=== PATIENT | female | born 1960 | race Caucasian/White ===

== ENCOUNTER 2020-02-05 13:29 | Emergency (ER) | payer BC ==
--- NOTE | 2020-02-05 14:23 | RAD ---
PORTABLE CHEST: 02/05/20 HISTORY: Chest pain. The lungs appear clear. No infiltrate or vascular congestion. Heart size is normal. IMPRESSION: No acute process. POS: AGW
[2020-02-05 14:26] LABS: #Basophils 0.1 thou/uL (0.0-0.2); #Eosinphils 0.1 thou/uL (0.0-0.7); #Lymphocytes 2.3 thou/uL (1.20-3.40); #Monocytes 0.6 thou/uL (0.11-0.59); #Neutrophils 7.4 thou/uL (1.40-6.50); %Basophils 0.7 % (0.0-1.0); %Eosinophils 0.9 % (0.0-10.0); %Lymphocytes 22.1 % (21.0-51.0); %Monocytes 5.7 % (0.0-10.0); %Neutrophils 70.7 % (42.0-75.0); Hemoglobin 13.5 g/dL (12.0-16.0); Mean Corpuscular HGB CONC 33.6 g/dL (32.0-36.0); Mean Corpuscular Hemoglobin 29.8 pg (27.0-31.0); Mean Corpuscular Volume 88.7 fL (78.0-98.0); Mean Platelet Volume 7.1 fL (7.4-10.4); Platelet Count 350 thou/uL (130-400); RBC Distribution Width 13.9 % (11.5-14.5); Red Blood Cell (RBC) Count 4.52 mill/uL (4.20-5.40); White Blood Cell (WBC) Count 10.5 thou/uL (4.8-10.8)
[2020-02-05 14:38] LABS: ALT (SGPT) 15 U/L (8-55); AST (SGOT) 14 U/L (5-34); Albumin 4.6 g/dL (3.4-4.8); Alkaline Phosphatase 100 U/L (40-110); Anion Gap 14 mmol/L (10-20); BUN (Urea Nitrogen) 12 mg/dL (9.8-20.1); Bilirubin, Total 0.3 mg/dL (0.2-1.2); CK (CPK) 63 U/L (29-168); Calc. Creatinine Clearance 0 mL/min (70-130); Calcium 9.7 mg/dL (7.8-10.44); Carbon Dioxide 25 mmol/L (23-31); Chloride 105 mmol/L (98-107); Estimated GFR-MDRD 70; Globulin 3.1 g/dL (2.4-3.5); Glucose 91 mg/dL (80-115); Potassium 4.4 mmol/L (3.5-5.1); Protein, Total 7.7 g/dL (6.0-8.3); Sodium 140 mmol/L (136-145)
[2020-02-05 15:05] LABS: Bacteria/HPF None Seen HPF (None Seen); Bilirubin Negative (Negative); Blood, Urine Trace (Negative); Clarity Clear (Clear); Glucose, Urine (Dipstick) Normal (Negative); Leukocyte Negative Leu/uL (Negative); Nitrite Negative (Negative); Protein, Urine (Dipstick) Negative (Neg-Trace); RBC/HPF 0-3 HPF (0-3); Squamous Epithelial 0-3 HPF (0-3); Urobilinogen Normal mg/dL (Less than 2); WBC/HPF 0-3 HPF (0-3)
--- NOTE | 2020-02-05 15:13 | CT ---
CT HEAD WITHOUT CONTRAST: 02/05/20 INDICATIONS: Syncope. No comparison. Moderate cortical atrophy involving the frontal lobes. This is more prominent than expected for age. There is a focal lucency in the right thalamus suggesting a remote insult. Old lacunar infarct would be suspected. No acute cortical infarct. No mass or hemorrhage. No edema. No significant white matter abnormality. Sinuses and mastoids are clear. IMPRESSION: 1. Moderate cortical atrophy involving the frontal lobes. 2. 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 3. No evidence of acute process identified. POS: AGW
--- NOTE | 2020-02-06 10:34 | EKG ---
Test Reason : Blood Pressure : / mmHG Vent. Rate : 083 BPM Atrial Rate : 083 BPM P-R Int : 162 ms QRS Dur : 094 ms QT Int : 384 ms P-R-T Axes : 051 002 057 degrees QTc Int : 451 ms Sinus rhythm with Premature atrial complexes Otherwise normal ECG Confirmed by IRMA BREWER DO [id number]), department editor ABIDA GARCIA ([id number] on 02/06/2020 10:34:39 AM Referred By: Confirmed By:IRMA BREWER DO
== END 2020-02-05 15:09 | disposition home or self-care (01) ==
LOC: ERS 13:29
DX: R55 Syncope and collapse (principal); I10 Essential (primary) hypertension; Z86.73 Personal history of transient ischemic attack (TIA), and cerebral infarction without residual deficits
CPT/HCPCS: 70450; 71045; 80053; 81003; 81015; 82550; 84484; 85025; 93005

== ENCOUNTER 2021-11-10 19:24 | Emergency (ER) | payer BC, SELFPAY ==
[2021-11-10] MEDS ORDERED: Proparacaine 0.5% Opth 15 ML BOT ONE (20:02)
[2021-11-10] MEDS ORDERED: Fluorescein Opthalmic Strip ONE (20:04)
== END 2021-11-10 21:00 | disposition home or self-care (01) ==
LOC: ERS 19:24
DX: S05.01XA Injury of conjunctiva and corneal abrasion without foreign body, right eye, initial encounter (principal); I10 Essential (primary) hypertension; Z86.73 Personal history of transient ischemic attack (TIA), and cerebral infarction without residual deficits; F17.210 Nicotine dependence, cigarettes, uncomplicated; W22.8XXA Striking against or struck by other objects, initial encounter
CPT/HCPCS: 99283

== ENCOUNTER 2022-09-03 09:39 | Outpatient (CLI) | payer BC | END 2022-09-03 09:40 | disposition home or self-care (01) | LOC: BICMAMMO 09:39 | PROVIDERS: ATTEND Internal Medicine | DX: Z12.31 Encounter for screening mammogram for malignant neoplasm of breast (principal); R92.1 Mammographic calcification found on diagnostic imaging of breast | CPT/HCPCS: 77063; 77067 ==

== ENCOUNTER 2023-04-21 11:02 | Outpatient (CLI) | payer BC ==
[~2023-04-21 11:02] MED LIST: Iopamidol 370 76% 100 ML VIAL ONE
== END 2023-04-21 11:03 | disposition home or self-care (01) ==
LOC: BICCT 11:02
PROVIDERS: ATTEND Neurological Surgery
DX: I67.1 Cerebral aneurysm, nonruptured (principal); J32.0 Chronic maxillary sinusitis; Z95.828 Presence of other vascular implants and grafts
CPT/HCPCS: 70496; 82565; Q9967

== ENCOUNTER 2023-05-20 06:03 | Day surgery (SDC) | payer BC ==
[2023-05-08 09:38] VITALS: BMI 28.1
[2023-05-20] MEDS ORDERED: Lidocaine 1% (PF) 30 ML VIAL ONE (06:11)
[2023-05-20] MEDS ORDERED: Heparin 10,000 UNITS/ 10 ML VIAL ONE (06:18)
[2023-05-20] MEDS ORDERED: fentaNYL 50 mcg/mL 1 mL Vial ONE (06:18)
[2023-05-20] MEDS ORDERED: Midazolam HCl 2 mg/2 ml Vial ONE (06:18)
[2023-05-20] MEDS ORDERED: hydrALAZINE 20 MG/ML VIAL ONE (07:51)
[2023-05-20] MEDS ORDERED: diphenhydrAMINE 50 MG/ML VIAL IVP SCH (10:30)
[2023-05-20] MEDS ORDERED: Acetaminophen 500 MG TAB PO SCH (10:30)
[2023-05-20] MEDS ORDERED: diphenhydrAMINE 50 MG/ML VIAL ONE (10:49)
[2023-05-20] MEDS ORDERED: Acetaminophen 500 MG TAB ONE (10:58)
[2023-05-20] MEDS ORDERED: Iopamidol 370 76% 100 ML VIAL ONE (11:03)
== END 2023-05-20 13:35 | disposition home or self-care (01) ==
LOC: SDC 06:03
PROVIDERS: ATTEND Internal Medicine Cardiovascular Disease
PROC: 04HK03Z Insertion of Infusion Device into Right Femoral Artery, Open Approach (ICD-10-PCS; principal; 2023-05-20)
PROC: 04H Lower Arteries, Insertion (ICD-10-PCS; principal; 2023-05-20)
DX: I73.9 Peripheral vascular disease, unspecified (principal); E78.5 Hyperlipidemia, unspecified; J44.9 Chronic obstructive pulmonary disease, unspecified; E78.2 Mixed hyperlipidemia; I49.9 Cardiac arrhythmia, unspecified; I49.1 Atrial premature depolarization; R55 Syncope and collapse; Z87.891 Personal history of nicotine dependence; Z90.49 Acquired absence of other specified parts of digestive tract; Z90.710 Acquired absence of both cervix and uterus; Z79.899 Other long term (current) drug therapy
CPT/HCPCS: 36245; 36246; 75716; C1769; J0360; J1200; J1644; J2001; J2250; J3010